=== PATIENT | female | born 1965 | race African-American/Black ===

== ENCOUNTER 2021-05-05 10:09 | Emergency (ER) | payer OTHER ==
[2021-05-05 10:41] VITALS: BP 147/93; PULSE 83; TEMP 97.9; BMI 34.7
[2021-05-05] MEDS ORDERED: LIDOCAINE 5% TOPICAL PATCH TP ONE (10:57)
[2021-05-05] MEDS ORDERED: KETOROLAC TROMETHAMINE 60 MG/2 ML VIAL IM ONE (10:57)
[2021-05-05] MEDS ORDERED: diazePAM 5 MG TABLET PO ONE (10:57)
[2021-05-05] MEDS ORDERED: KETOROLAC TROMETHAMINE 30 MG/1 ML VIAL ONE (11:05)
[2021-05-05] MEDS ORDERED: LIDOCAINE 5% TOPICAL PATCH ONE (11:05)
[2021-05-05] MEDS ORDERED: diazePAM 5 MG TABLET ONE (11:06)
== END 2021-05-05 12:43 | disposition home or self-care (01) ==
LOC: JERFT 10:09
PROC: 3E0233Z Introduction of Anti-inflammatory into Muscle, Percutaneous Approach (ICD-10-PCS; principal; 2021-05-05)
DX: M54.2 Cervicalgia (principal)
CPT/HCPCS: 99284-25

== ENCOUNTER 2022-04-24 23:36 | Emergency (ER) | payer OTHER ==
[2022-04-24 23:56] VITALS: BMI 33.0
[2022-04-25 04:14] LABS: PH,URINE 5.5 (5.0-8.0); URINE APPEARANCE CLEAR; URINE BILIRUBIN NEGATIVE (NEGATIVE); URINE COLOR YELLOW; URINE GLUCOSE (UA) NEGATIVE (NEGATIVE); URINE KETONE NEGATIVE (NEGATIVE); URINE LEUK ESTERASE NEGATIVE (NEGATIVE); URINE NITRITE NEGATIVE (NEGATIVE); URINE PROTEIN NEGATIVE (NEGATIVE); URINE UROBILINOGEN 0.2 mg/dL (0.2-1.0)
[2022-04-25] MEDS ORDERED: ETHYL CHLORIDE 100% 103.5 ML BOTTLE TP ONE (04:27)
[2022-04-25] MEDS ORDERED: ACETAMINOPHEN 1000 MG/100 ML BAG IVPB ONE (04:41)
[2022-04-25] MEDS ORDERED: ACETAMINOPHEN INJECTION 100 ML IVPB ONE (04:48)
[2022-04-25 04:51] LABS: BASO % 0.6 % (0-2.0); EOS % 1.9 % (0-4.5); HEMATOCRIT 42.9 % (32.4-45.2); HEMOGLOBIN 14.6 GM/dL (10.7-15.3); LYMPH % 41.3 % (8-40); MCH 31.4 pg (25.7-33.7); MEAN CELL VOLUME 92.4 fl (80-96); MEAN PLT VOLUME 6.8 fl (7.5-11.1); NEUT % 51.2 % (42.8-82.8); PLATELET COUNT 306 10^3/uL (134-434); RBC 4.65 M/mm3 (3.60-5.2); WHITE BLOOD COUNT 13.2 K/mm3 (4.0-10.0)
[2022-04-25 05:09] LABS: CALCIUM 9.9 mg/dL (8.5-10.1)
[2022-04-25 05:10] LABS: ALBUMIN 4.1 g/dl (3.4-5.0); BLOOD UREA NITROGEN 8.5 mg/dL (7-18)
[2022-04-25 05:13] LABS: CREATININE 0.8 mg/dL (0.55-1.3)
[2022-04-25 05:14] LABS: BILIRUBIN,TOTAL 0.3 mg/dL (0.2-1); TOT PROT 7.8 g/dl (6.4-8.2)
[2022-04-25 05:39] VITALS: BP 123/52; PULSE 62; TEMP 98
== END 2022-04-25 06:49 | disposition home or self-care (01) ==
LOC: JER 23:36
PROC: 3E033GC Introduction of Other Therapeutic Substance into Peripheral Vein, Percutaneous Approach (ICD-10-PCS; principal; 2022-04-24)
DX: S20.212A Contusion of left front wall of thorax, initial encounter (principal); S39.011A Strain of muscle, fascia and tendon of abdomen, initial encounter; V49.9XXA Car occupant (driver) (passenger) injured in unspecified traffic accident, initial encounter
CPT/HCPCS: 36415; 71046-TC-FY; 71101-TC-LT-FY; 74177-TC; 80053; 81003; 83690; 84484; 85025; 87086; 93005; 93010; 99285-25

== ENCOUNTER 2022-08-08 03:59 | Inpatient (IN) | payer OTHER ==
[2022-08-07 09:00] VITALS: BMI 31.4
[~2022-08-08 03:59] MED LIST: PNEUMOC 20-VAL CONJ-DIP CRM/PF 0.5 ML SYRINGE IM ONE
[2022-08-08] MEDS ORDERED: CEFAZOLIN 2 GM in DEXTROSE 5%-WATER - 100 ML IVPB ONE (07:00)
[2022-08-08] MEDS ORDERED: VANCOMYCIN 1,000 MG VIAL (RESTRICTED TO ID ONLY) ONE (10:09)
[2022-08-08] MEDS ORDERED: LIDOCAINE 1%/EPI 1:100000 (20 ML MULTI DOSE VIAL) ONE ×2 (10:10→10:12)
[2022-08-08] MEDS ORDERED: GENTAMICIN SO4 80 MG/2 ML VIAL ONE (10:10)
[2022-08-08] MEDS ORDERED: THROMBIN (BOVINE) 5,000 UNIT VIAL TP ONE ×4 (10:10→13:45)
[2022-08-08] MEDS ORDERED: BUPIVACAINE HCL/PF 0.5% (5MG/ML) 10 ML VIAL ONE (10:11)
[2022-08-08] MEDS ORDERED: BUPIVACAINE LIPOSOME/PF (EXPAREL) 266 MG/20 ML VIAL ONE (10:11)
[2022-08-08] MEDS ORDERED: LIDOCAINE 1%/EPI 1:100000 (20 ML MULTI DOSE VIAL) IJ ONE ×3 (10:28→15:31)
[2022-08-08] MEDS ORDERED: ceFAZolin SODIUM 1 GM VIAL IVPB ONE ×3 (10:28→16:10)
[2022-08-08] MEDS ORDERED: VANCOMYCIN 1 GM in D5W (PRE-DOCKED) 1,000 MG/250 ML IVPB ONE ×2 (10:29→13:08)
[2022-08-08] MEDS ORDERED: GENTAMICIN SO4 80 MG/2 ML VIAL IVPB ONE ×2 (10:30→14:45)
[2022-08-08] MEDS ORDERED: HYDROGEN PEROXIDE 473 ML PO ONE ×2 (10:31→14:45)
[2022-08-08] MEDS ORDERED: ceFAZolin SODIUM 1 GM VIAL ONE ×2 (11:12→13:56)
[2022-08-08] MEDS ORDERED: MIDAZOLAM HCL 2 MG/2 ML SINGLE DOSE VIAL ONE ×2 (11:49→15:39)
[2022-08-08] MEDS ORDERED: ROCURONIUM BROMIDE 50 MG/5 ML SYRINGE ONE ×2 (11:49→13:58)
[2022-08-08] MEDS ORDERED: PROPOFOL 20 ML ONE (11:49)
[2022-08-08] MEDS ORDERED: HYDROmorphone HCl 2 MG/ML VIAL ONE (12:58)
[2022-08-08] MEDS ORDERED: PHENYLEPHRINE HCL 10 MG/1 ML SINGLE DOSE VIAL ONE (13:56)
[2022-08-08] MEDS ORDERED: ONDANSETRON 4 MG/2 ML VIAL ONE (13:56)
[2022-08-08] MEDS ORDERED: DEXAMETHASONE SOD PHOSPHATE 4 MG/1 ML VIAL ONE (13:56)
[2022-08-08] MEDS ORDERED: ePHEDrine SULFATE 50 MG/1 ML AMPULE ONE (14:17)
[2022-08-08] MEDS ORDERED: BUPIVACAINE HCL/PF 0.5% (5MG/ML) 10 ML VIAL IJ ONE (16:11)
[2022-08-08] MEDS ORDERED: BUPIVACAINE LIPOSOME/PF (EXPAREL) 266 MG/20 ML VIAL NR ONE (16:11)
[2022-08-08] MEDS ORDERED: NEOSTIGMINE METHYLSULFATE 0.5 MG/ML - 10 ML MDV ONE (16:35)
[2022-08-08] MEDS ORDERED: GLYCOPYRROLATE 0.2 MG/1 ML VIAL ONE (16:35)
[2022-08-08] MEDS ORDERED: diphenhydrAMINE HCL 25 MG CAPSULE (FP) PO PRN (17:34)
[2022-08-08] MEDS ORDERED: ONDANSETRON 4 MG/2 ML VIAL IVPUSH PRN (17:38)
[2022-08-08] MEDS ORDERED: ACETAMINOPHEN 1000 MG/100 ML BAG IVPB ONE (17:38)
[2022-08-08] MEDS ORDERED: LACTATED RINGERS SOLUTION 1,000 ML/1,000 ML INFUS.BAG IV SCH (17:45)
[2022-08-08] MEDS ORDERED: HYDROmorphone *PCA* 10MG/50ML DISP.SYRIN ONE (18:13)
[2022-08-08] MEDS: HYDROmorphone *PCA* 10MG/50ML DISP.SYRIN PCA SCH (18:13)
[2022-08-08] MEDS: LACTATED RINGERS SOLUTION 1,000 ML IV SCH (18:13)
[2022-08-09] MEDS: ACETAMINOPHEN 1000 MG/100 ML BAG IVPB SCH ×4 (01:21→17:30)
[2022-08-09] MEDS: LACTATED RINGERS SOLUTION 1,000 ML IV SCH ×2 (02:00→17:55)
[2022-08-09] MEDS: HEPARIN NA (PORCINE) 5,000 UNITS/ML 1ML VIAL SQ SCH ×4 (05:51→21:46)
[2022-08-09] MEDS: CEFAZOLIN 1 GM in DEXTROSE 5%-WATER - 50 ML IVPB SCH ×4 (06:23→20:00)
[2022-08-09] MEDS ORDERED: PNEUMOC 20-VAL CONJ-DIP CRM/PF 0.5 ML SYRINGE IM ONE (07:30)
[2022-08-09 08:26] LABS: HEMATOCRIT 36.3 % (32.4-45.2); HEMOGLOBIN 12.2 GM/dL (10.7-15.3); MCHC 33.7 g/dl (32.0-36.0); MEAN CELL VOLUME 91.8 fl (80-96); PLATELET COUNT 280 10^3/uL (134-434); RBC 3.95 M/mm3 (3.60-5.2); RDW 14.5 % (11.6-15.6); WHITE BLOOD COUNT 15.6 K/mm3 (4.0-10.0)
[2022-08-09 08:48] LABS: CALCIUM 9.3 mg/dL (8.5-10.1)
[2022-08-09 08:49] LABS: BLOOD UREA NITROGEN 7.8 mg/dL (7-18)
[2022-08-09 08:52] LABS: CREATININE 0.9 mg/dL (0.55-1.3)
[2022-08-09] MEDS ORDERED: POLYETHYLENE GLYCOL (HEALTHYLAX) 3350 17 GM PACKET PO PRN (11:19)
[2022-08-09] MEDS ORDERED: PHENAZOPYRIDINE HCL 100 MG TABLET (FP) PO ONE (12:00)
[2022-08-09] MEDS ORDERED: CYCLOBENZAPRINE HCL 5 MG TABLET PO ONE (12:00)
[2022-08-09] MEDS: SIMETHICONE 80 MG TAB.CHEW (FP) PO PRN ×2 (12:04→21:50)
[2022-08-09] MEDS: DOCUSATE SODIUM 100 MG CAPSULE (FP) PO SCH ×2 (12:04→21:45)
[2022-08-09] MEDS: BACLOFEN 10 MG TABLET (FP) PO SCH (21:45)
[2022-08-10] MEDS: HYDROmorphone *PCA* 10MG/50ML DISP.SYRIN PCA SCH (00:10)
[2022-08-10] MEDS: ACETAMINOPHEN 1000 MG/100 ML BAG IVPB SCH ×2 (00:11→05:48)
[2022-08-10] MEDS: LACTATED RINGERS SOLUTION 1,000 ML IV SCH (00:12)
[2022-08-10] MEDS: CEFAZOLIN 1 GM in DEXTROSE 5%-WATER - 50 ML IVPB SCH ×2 (04:33→11:00)
[2022-08-10] MEDS ORDERED: ALBUTEROL SO4 HFA INHALER IH PRN (04:43)
[2022-08-10 04:48] VITALS: RESP 20
[2022-08-10] MEDS: HEPARIN NA (PORCINE) 5,000 UNITS/ML 1ML VIAL SQ SCH (05:47)
[2022-08-10] MEDS: DOCUSATE SODIUM 100 MG CAPSULE (FP) PO SCH (09:37)
[2022-08-10] MEDS: BACLOFEN 10 MG TABLET (FP) PO SCH (09:37)
[2022-08-10] MEDS ORDERED: oxyCODONE HCL 5 MG TABLET PO PRN (10:24)
[2022-08-10] MEDS ORDERED: BENZOCAINE/MENTH/CETYLPYRD CL 1 EACH LOZENGE MM PRN (10:41)
[2022-08-10 10:49] VITALS: BP 147/94; PULSE 92
[2022-08-10] MEDS ORDERED: INSULIN (NOVOLOG) ASPART 100 UNITS/ML 10ML VIAL SQ SCH (11:00)
[2022-08-10 11:15] VITALS: TEMP 98
== END 2022-08-10 11:47 | disposition home or self-care (01) | DRG 321 ==
LOC: J2C 03:59 → J6S 19:52
PROVIDERS: ADMIT Neurological Surgery; ATTEND Family Medicine
PROC: 0RT30ZZ Resection of Cervical Vertebral Disc, Open Approach (ICD-10-PCS; 2022-08-08)
PROC: 00NW0ZZ Release Cervical Spinal Cord, Open Approach (ICD-10-PCS; 2022-08-08)
PROC: 4A11X4G Monitoring of Peripheral Nervous Electrical Activity, Intraoperative, External Approach (ICD-10-PCS; 2022-08-08)
PROC: 0RG20A0 Fusion of 2 or more Cervical Vertebral Joints with Interbody Fusion Device, Anterior Approach, Anterior Column, Open Approach (ICD-10-PCS; principal; 2022-08-08 11:45)
PROC: 0RG2071 Fusion of 2 or more Cervical Vertebral Joints with Autologous Tissue Substitute, Posterior Approach, Posterior Column, Open Approach (ICD-10-PCS; 2022-08-08 11:45)
DX: M47.12 Other spondylosis with myelopathy, cervical region (principal); E11.9 Type 2 diabetes mellitus without complications; J45.909 Unspecified asthma, uncomplicated; D72.829 Elevated white blood cell count, unspecified; M40.40 Postural lordosis, site unspecified; J44.9 Chronic obstructive pulmonary disease, unspecified; Z96.651 Presence of right artificial knee joint
CPT/HCPCS: 36415; 72125-TC; 76000-TC-FY; 80048; 85027; 86850; 86900; 86901; 94760; 97116-GP; 97162-GP; C1776; J0475; J1644

== ENCOUNTER 2024-05-08 17:27 | Inpatient (IN) | payer OTHER ==
[2024-05-08] MEDS ORDERED: ACETAMINOPHEN INJECTION 100 ML IVPB ONE (18:28)
[2024-05-08] MEDS: SODIUM CHLORIDE 0.9% 500 ML INFUS.BAG IV ONE ×2 (18:32→20:32)
[2024-05-08] MEDS: ACETAMINOPHEN 1000 MG/100 ML BAG IVPB ONE (18:32)
[2024-05-08 18:50] LABS: BASO % 0.3 % (0-2.0); HEMATOCRIT 48.3 % (32.4-45.2); HEMOGLOBIN 16.5 GM/dL (10.7-15.3); LYMPH % 11.9 % (8-40); MCH 30.8 pg (25.7-33.7); MCHC 34.1 g/dl (32.0-36.0); MEAN CELL VOLUME 90.2 fl (80-96); MEAN PLT VOLUME 7.8 fl (7.5-11.1); MONO % 7.2 % (3.8-10.2); NEUT % 80.6 % (42.8-82.8); PLATELET COUNT 198 10^3/uL (134-434); RBC 5.36 M/mm3 (3.60-5.2); RDW 13.4 % (11.6-15.6)
[2024-05-08 18:57] LABS: VENOUS O2 SATURATION 44.6 % (70-80); VENOUS PCO2 36.9 mmHg (38-52); VENOUS PH 7.413 (7.310-7.410)
[2024-05-08 19:05] LABS: INR 1.08 (0.83-1.09); PROTHROMBIN TIME (PATIENT) 12.4 SEC (9.7-13.0)
[2024-05-08 19:08] LABS: ACTIVATED PTT 29.4 SECONDS (25.2-36.5)
[2024-05-08 19:32] LABS: CHLORIDE 93 mmol/L (98-107); SODIUM 127 mmol/L (136-145)
[2024-05-08 19:34] LABS: CALCIUM 9.6 mg/dL (8.5-10.1)
[2024-05-08 19:35] LABS: ALBUMIN 3.5 g/dl (3.4-5.0); BLOOD UREA NITROGEN 7.3 mg/dL (7-18); CO2 23 mmol/L (21-32); GLUCOSE,RANDOM 341 mg/dL (74-106)
[2024-05-08 19:38] LABS: CREATININE 1.1 mg/dL (0.55-1.3); SGOT/AST 93 U/L (15-37)
[2024-05-08 19:39] LABS: TOT PROT 8.1 g/dl (6.4-8.2)
[2024-05-08 19:40] LABS: ALK PHOS 154 U/L (45-117); ANION GAP 11 mmol/L (4-13); POTASSIUM 6.2 mmol/L (3.5-5.1); SGPT/ALT 54 U/L (13-61)
[2024-05-08 21:17] LABS: EPI CELLS 2 /uL (0-25.1); HYALINE CASTS 0 /uL (0-3.1); PH,URINE 5.5 (5.0-8.0); URINE APPEARANCE CLEAR; URINE BACTERIA 1475 /uL (0-1359); URINE BILIRUBIN NEGATIVE (NEGATIVE); URINE COLOR YELLOW; URINE GLUCOSE (UA) 3+ (NEGATIVE); URINE KETONE 2+ (NEGATIVE); URINE LEUK ESTERASE 1+ (NEGATIVE); URINE NITRITE POSITIVE (NEGATIVE); URINE PROTEIN TRACE (NEGATIVE); URINE UROBILINOGEN 0.2 mg/dL (0.2-1.0); URINE WBC 228 /uL (0-25.8)
[2024-05-08] MEDS ORDERED: CEFTRIAXONE 1 GM/50 ML BAG ONE (21:36)
[2024-05-08 22:04] LABS: URINE RBC 27.4 /uL (0-23.9)
[2024-05-08] MEDS: CEFTRIAXONE 1 GM in DEXTROSE 5%-WATER - 100 ML IVPB ONE (22:59)
[2024-05-09] MEDS: SODIUM CHLORIDE 1,000 ML IV STA (01:49)
[2024-05-09] MEDS: SODIUM CHLORIDE 1,000 ML IV SCH (02:36)
[2024-05-09] MEDS ORDERED: ACETAMINOPHEN 1000 MG/100 ML BAG IVPB PRN (02:40)
[2024-05-09 03:08] LABS: POTASSIUM 3.7 mmol/L (3.5-5.1)
[2024-05-09 03:10] LABS: BLOOD UREA NITROGEN 6.2 mg/dL (7-18); CALCIUM 8.4 mg/dL (8.5-10.1)
[2024-05-09 03:14] LABS: CREATININE 0.8 mg/dL (0.55-1.3)
[2024-05-09 06:58] LABS: HEMATOCRIT 39.7 % (32.4-45.2); HEMOGLOBIN 13.8 GM/dL (10.7-15.3); MCH 31.5 pg (25.7-33.7); MCHC 34.8 g/dl (32.0-36.0); MEAN CELL VOLUME 90.3 fl (80-96); MEAN PLT VOLUME 7.7 fl (7.5-11.1); PLATELET COUNT 174 10^3/uL (134-434); RBC 4.39 M/mm3 (3.60-5.2); RDW 13.4 % (11.6-15.6); WHITE BLOOD COUNT 9.8 K/mm3 (4.0-10.0)
[2024-05-09 07:50] LABS: CALCIUM 8.3 mg/dL (8.5-10.1)
[2024-05-09 07:51] LABS: BLOOD UREA NITROGEN 6.1 mg/dL (7-18); MAGNESIUM 1.7 mg/dL (1.8-2.4)
[2024-05-09 07:54] LABS: CREATININE 0.7 mg/dL (0.55-1.3); PHOSPHOROUS 1.8 mg/dL (2.5-4.9)
[2024-05-09] MEDS: ACETAMINOPHEN 1000 MG/100 ML BAG IVPB PRN (10:05)
[2024-05-09 10:27] VITALS: BMI 31.1
[2024-05-09] MEDS: INSULIN ASPART SLIDING SCALE (NOVOLOG) 1 VIAL SQ SCH (11:15)
[2024-05-09] MEDS ORDERED: INSULIN ASPART SLIDING SCALE (NOVOLOG) 1 VIAL SQ ONE ×3 (14:18→17:23)
[2024-05-09] MEDS ORDERED: DEXTROSE 50%-WATER - 25 GM/50 ML VIAL IVPUSH PRN (17:40)
[2024-05-09] MEDS: INSULIN (LEVEMIR) 100 UNITS/ML UNITS SQ SCH (21:42)
[2024-05-09] MEDS: CEFTRIAXONE 1 GM in DEXTROSE 5%-WATER - 50 ML IVPB SCH (21:42)
[2024-05-10] MEDS: ACETAMINOPHEN 325 MG TABLET (FP) PO PRN (07:22)
[2024-05-10 09:18] LABS: BASO % 0.6 % (0-2.0); EOS % 2.7 % (0-4.5); HEMATOCRIT 39.1 % (32.4-45.2); HEMOGLOBIN 13.7 GM/dL (10.7-15.3); LYMPH % 27.6 % (8-40); MCH 31.2 pg (25.7-33.7); MCHC 35.1 g/dl (32.0-36.0); MEAN CELL VOLUME 88.9 fl (80-96); MEAN PLT VOLUME 7.5 fl (7.5-11.1); NEUT % 57.1 % (42.8-82.8); PLATELET COUNT 187 10^3/uL (134-434); RDW 13.4 % (11.6-15.6); WHITE BLOOD COUNT 6.7 K/mm3 (4.0-10.0)
[2024-05-10 09:36] LABS: POTASSIUM 3.2 mmol/L (3.5-5.1)
[2024-05-10 09:37] LABS: CALCIUM 8.7 mg/dL (8.5-10.1)
[2024-05-10 09:38] LABS: BLOOD UREA NITROGEN 4.2 mg/dL (7-18)
[2024-05-10 09:41] LABS: CREATININE 0.7 mg/dL (0.55-1.3)
[2024-05-10] MEDS: ALBUTEROL SO4 2.5/IPRATROPIUM 0.5 INH SOL 3 ML VIAL.NEB. NEB PRN (10:01)
[2024-05-10] MEDS: ENOXAPARIN NA (PORCINE) 40 MG/0.4 ML DISP.SYRIN SQ SCH (11:27)
[2024-05-10] MEDS: DEXTROSE 50%-WATER - 25 GM/50 ML VIAL IVPUSH ONE (11:50)
[2024-05-10] MEDS: POTASSIUM CHLORIDE ORAL LIQUID 20 MEQ/15 ML PO ONE (16:23)
[2024-05-10] MEDS: NICOTINE 7 MG/24 HOURS TOPICAL PATCH TD SCH (16:26)
[2024-05-10] MEDS: ALBUTEROL SO4 HFA INHALER IH PRN (16:29)
[2024-05-10] MEDS: BENZONATATE 200 MG CAPSULE PO SCH (17:36)
[2024-05-10] MEDS: CEFTRIAXONE 2 GM in SODIUM CHLORIDE 100 ML IVPB SCH (19:33)
[2024-05-10] MEDS: GABAPENTIN 300 MG CAPSULE PO SCH (22:18)
[2024-05-11 07:03] VITALS: RESP 18
[2024-05-11] MEDS ORDERED: INSULIN (LEVEMIR) 100 UNITS/ML UNITS SQ SCH (07:54)
[2024-05-11 08:20] LABS: BASO % 0.7 % (0-2.0); EOS % 2.5 % (0-4.5); HEMATOCRIT 38.8 % (32.4-45.2); HEMOGLOBIN 13.5 GM/dL (10.7-15.3); LYMPH % 35.8 % (8-40); MCH 30.7 pg (25.7-33.7); MCHC 34.8 g/dl (32.0-36.0); MEAN CELL VOLUME 88.4 fl (80-96); MEAN PLT VOLUME 7.8 fl (7.5-11.1); MONO % 12.5 % (3.8-10.2); NEUT % 48.5 % (42.8-82.8); PLATELET COUNT 223 10^3/uL (134-434); RBC 4.39 M/mm3 (3.60-5.2); RDW 13.2 % (11.6-15.6); WHITE BLOOD COUNT 7.9 K/mm3 (4.0-10.0)
[2024-05-11 08:29] LABS: CHLORIDE 110 mmol/L (98-107); POTASSIUM 3.7 mmol/L (3.5-5.1); SODIUM 143 mmol/L (136-145)
[2024-05-11 08:46] LABS: ANION GAP 8 mmol/L (4-13); CALCIUM 8.7 mg/dL (8.5-10.1); CO2 25 mmol/L (21-32); GLUCOSE,RANDOM 114 mg/dL (74-106); MAGNESIUM 1.8 mg/dL (1.8-2.4)
[2024-05-11 08:50] LABS: CREATININE 0.6 mg/dL (0.55-1.3)
[2024-05-11 08:56] LABS: BLOOD UREA NITROGEN 2.7 mg/dL (7-18)
[2024-05-11] MEDS: AMINO ACIDS/PROTEIN HYDROLYS 30 ML LIQUID.PKT PO SCH (10:49)
[2024-05-11 14:37] VITALS: BP 156/97; PULSE 88; TEMP 98.6
== END 2024-05-11 15:40 | disposition home or self-care (01) | DRG 720 ==
LOC: JER 17:27 → JERBED 05-09 00:10 → J7W 05-09 08:51 → OBSVTOIN 05-09 10:29
PROVIDERS: ADMIT Internal Medicine; ATTEND Nurse Practitioner
DX: A41.9 Sepsis, unspecified organism (principal); I10 Essential (primary) hypertension; J44.9 Chronic obstructive pulmonary disease, unspecified; M81.0 Age-related osteoporosis without current pathological fracture; E87.1 Hypo-osmolality and hyponatremia; N12 Tubulo-interstitial nephritis, not specified as acute or chronic; F17.210 Nicotine dependence, cigarettes, uncomplicated; J84.9 Interstitial pulmonary disease, unspecified; E11.65 Type 2 diabetes mellitus with hyperglycemia; E87.6 Hypokalemia; B96.20 Unspecified Escherichia coli [E. coli] as the cause of diseases classified elsewhere; E87.5 Hyperkalemia
CPT/HCPCS: 0241U-QW; 36415; 71045-TC-FY; 71275-TC; 74177-TC; 80048; 80053; 81003; 82010; 82550; 82553; 82803; 82962; 83036; 83605; 83735; 84100; 84443; 84484; 85025; 85027; 85379; 85610; 85730; 86850; 86900; 86901; 87040; 87086; 87186; 93005; 93010; 93306-TC; 94640; 99285-25; G0378; J0131; Q9967